=== PATIENT | female | born 1955 | race Hispanic/Latino ===

== ENCOUNTER → 2019-09-24 | Outpatient (CLI) | payer OTHER, MEDICARE | END | disposition home or self-care (01) | LOC: RAH 10:52 | PROVIDERS: ATTEND Internal Medicine | DX: Z12.31 Encounter for screening mammogram for malignant neoplasm of breast (principal) | CPT/HCPCS: 77067 ==

== ENCOUNTER → 2021-05-10 | Outpatient (CLI) | payer OTHER, MEDICARE ==
[~2021-05-10] MED LIST: IOHEXOL-350 75 ML VIAL IV ONE
== END | disposition home or self-care (01) ==
LOC: RAH 10:33
PROVIDERS: ATTEND Internal Medicine
DX: K57.30 Diverticulosis of large intestine without perforation or abscess without bleeding (principal)
CPT/HCPCS: 74178; Q9967

== ENCOUNTER → 2021-08-16 | Outpatient (CLI) | payer OTHER, MEDICARE ==
[~2021-08-16] MED LIST changes: -IOHEXOL-350 75 ML VIAL IV ONE; +LIDOCAINE HCL 400MG/20ML VIAL ONE; +SODIUM BICARB 50MEQ 50ML VIAL 50 ML ONE
[2021-08-16 08:48] LABS: INR 1.04 (0.85-1.15); PROTHROMBIN TIME 11.3 SEC (9.6-11.6)
[2021-08-16 08:49] LABS: PARTIAL THROMBOPLASTIN TIME 27.9 SEC (26.3-35.5)
== END | disposition home or self-care (01) ==
LOC: RAH 10:00
PROVIDERS: ATTEND Internal Medicine
DX: E04.1 Nontoxic single thyroid nodule (principal); I10 Essential (primary) hypertension; E78.5 Hyperlipidemia, unspecified; E03.9 Hypothyroidism, unspecified; Z98.890 Other specified postprocedural states; Z90.89 Acquired absence of other organs; Z79.01 Long term (current) use of anticoagulants
CPT/HCPCS: 10005; 36415; 85610; 85730; 88173; 88305; J3490 ×2; 76942

== ENCOUNTER → 2023-01-23 | Outpatient (CLI) | payer OTHER, MEDICARE | END | disposition home or self-care (01) | LOC: RAH 09:35 | PROVIDERS: ATTEND Internal Medicine | DX: Z12.31 Encounter for screening mammogram for malignant neoplasm of breast (principal) | CPT/HCPCS: 77067 ==

== ENCOUNTER → 2023-04-24 | Outpatient (CLI) | payer OTHER | END | disposition home or self-care (01) | LOC: RAH 14:02 | PROVIDERS: ATTEND Internal Medicine | DX: Z13.6 Encounter for screening for cardiovascular disorders (principal); R93.1 Abnormal findings on diagnostic imaging of heart and coronary circulation | CPT/HCPCS: 75571 ==

== ENCOUNTER → 2023-07-03 | Outpatient (CLI) | payer OTHER, MEDICARE | END | disposition home or self-care (01) | LOC: SHCH 14:34 | PROVIDERS: ATTEND Internal Medicine Cardiovascular Disease | DX: I08.0 Rheumatic disorders of both mitral and aortic valves (principal); I11.9 Hypertensive heart disease without heart failure; R53.83 Other fatigue; R93.1 Abnormal findings on diagnostic imaging of heart and coronary circulation; R06.02 Shortness of breath; R06.09 Other forms of dyspnea; R09.89 Other specified symptoms and signs involving the circulatory and respiratory systems; E78.5 Hyperlipidemia, unspecified; Z82.49 Family history of ischemic heart disease and other diseases of the circulatory system; Z79.899 Other long term (current) drug therapy | CPT/HCPCS: 93306; 93880 ==

== ENCOUNTER → 2023-08-01 | Outpatient (CLI) | payer OTHER, MEDICARE | END | disposition home or self-care (01) | LOC: RAH 11:36 | PROVIDERS: ATTEND Clinical Nurse Specialist Family Health | DX: M51.17 Intervertebral disc disorders with radiculopathy, lumbosacral region (principal); M25.552 Pain in left hip; M48.061 Spinal stenosis, lumbar region without neurogenic claudication | CPT/HCPCS: 72100; 73502 ==

== ENCOUNTER → 2023-09-26 | Outpatient (CLI) | payer OTHER, MEDICARE ==
[~2023-09-26] MED LIST changes: +AEC81 PO; +ASCO500T19 PO; +ATOR40TA69 PO; +CALC-1009 PO; +CHOL200052 PO; +FLUT16H NASAL; +FOLIC ACID PO; +HYDR-4064 PO; +LEVO88CA4 PO; -LIDOCAINE HCL 400MG/20ML VIAL ONE; +LOSA1TAB54 PO; +ROSU20TA73 PO; -SODIUM BICARB 50MEQ 50ML VIAL 50 ML ONE; +TRAZ150T79 PO; +VITAMIN B12 PO
== END | disposition home or self-care (01) ==
LOC: RAH 13:30
PROVIDERS: ATTEND Internal Medicine Cardiovascular Disease
DX: I87.2 Venous insufficiency (chronic) (peripheral) (principal); I25.10 Atherosclerotic heart disease of native coronary artery without angina pectoris
CPT/HCPCS: 93971

== ENCOUNTER → 2024-04-30 | Outpatient (CLI) | payer OTHER, MEDICARE | END | disposition home or self-care (01) | LOC: RAH 09:20 | DX: Z12.31 Encounter for screening mammogram for malignant neoplasm of breast (principal); R92.323 Mammographic fibroglandular density, bilateral breasts | CPT/HCPCS: 77067 ==

== ENCOUNTER → 2024-06-03 | Outpatient (CLI) | payer OTHER, MEDICARE | END | disposition home or self-care (01) | LOC: RAH 12:56 | DX: E04.1 Nontoxic single thyroid nodule (principal); M25.572 Pain in left ankle and joints of left foot; M77.52 Other enthesopathy of left foot and ankle | CPT/HCPCS: 73600; 76536 ==

== ENCOUNTER → 2024-08-30 | Outpatient (CLI) | payer OTHER, MEDICARE ==
[~2024-08-30] MED LIST changes: -ROSU20TA73 PO; +ROSU20TA98 PO
== END | disposition home or self-care (01) ==
LOC: SHCH 11:14
PROVIDERS: ATTEND Internal Medicine Cardiovascular Disease
DX: I35.0 Nonrheumatic aortic (valve) stenosis (principal)
CPT/HCPCS: 93306

== ENCOUNTER → 2024-09-06 | Outpatient (CLI) | payer OTHER, MEDICARE ==
[2024-09-06 09:19] LABS: INR 0.96 (0.85-1.15); PROTHROMBIN TIME 10.8 SEC (9.6-11.6)
[2024-09-06 09:20] LABS: PARTIAL THROMBOPLASTIN TIME 29.3 SEC (26.3-35.5)
--- NOTE | 2024-09-06 09:45 | NUR ---
U/S GD RT THYROID NODULE FNA U/S PERFORMED BY Luis Daniel WHITE RDMS. IMAGES REVIEWED BY DR Cristal LYNCH. PER DR LYNCH NO NEED TO REPEAT THYROID NODULE FNA. PER PT RESULTS FROM 08/2021 RT THYROID NODULE WERE NEGATIVE FOR CA. DR LYNCH SPOKE WITH PT REGARDING NO NEED FOR FNA/BX. VERBALIZED UNDERSTANDING. DISCHARGE VIA AMBULATORY. DENIES PAIN. A&O.
--- NOTE | 2024-09-06 11:02 | HMCIMG ---
Ultrasound-guided thyroid biopsy- Fine-needle aspiration right-sided upper pole nodule CLINICAL INDICATION: Right thyroid nodule. COMPARISON: Ultrasound August 02, 2021 and June 03, 2024 PROCEDURE: The prior studies were reviewed. In addition, chief business officer images were obtained today prior to intervention. The nodule of the right thyroid lobe upper pole measures 1.4 cm in greatest diameter. It is unchanged in appearance when compared with the past 2 exams. It is also unchanged in terms of size. There is history that this nodule has been biopsied in the past, with benign pathology results. In addition, review of today's images demonstrates that the nodule lies very close to the internal carotid artery origin as well as a right internal jugular vein. I discussed with the patient these facts as well as the knowledge that the nodule has remained unchanged in appearance or size and that it has already been biopsied and proven to represent a benign finding. For these reasons, plus the fact that the nodule is very close to main vessels, the patient prefers that we perform a 6 month follow-up examination and postpone the biopsy at this time. I agree with this plan since in my opinion this is a benign nodule anyway. IMPRESSION: Biopsy postponed as per patient request. We will perform a six-month follow-up ultrasound.
== END | disposition home or self-care (01) ==
LOC: RAH 08:37
DX: E04.1 Nontoxic single thyroid nodule (principal); I11.9 Hypertensive heart disease without heart failure; R73.01 Impaired fasting glucose; E03.9 Hypothyroidism, unspecified
CPT/HCPCS: 36415; 76536; 85610; 85730

== ENCOUNTER → 2024-12-09 | Outpatient (CLI) | payer OTHER, MEDICARE ==
--- NOTE | 2024-12-09 13:56 | HMCIMG ---
SOFT TISSUE NECK ULTRASOUND INDICATION: Bilateral neck lymphadenopathy COMPARISON: None TECHNIQUE: Multiplanar sonographic images of the bilateral neck were obtained earlier in real-time using grayscale and color Doppler technique, and subsequently made available for review. FINDINGS/IMPRESSION: Several normal-appearing small right and left neck lymph nodes, largest on the right measuring up to 10 x 3 x 7 mm in largest on the left measuring up to 8 x 7 x 7 mm.
== END | disposition home or self-care (01) ==
LOC: RAH 12:42
DX: R59.0 Localized enlarged lymph nodes (principal)
CPT/HCPCS: 76536